=== PATIENT | male | born 1960 | race Caucasian/White ===

== ENCOUNTER 2021-12-08 12:23 | Observation (INO) ==
[2021-12-08 13:03] LABS: Basophils % 0.3 % (0.0-0.8); Eosinophils # 0.2 10*3/uL (0.0-0.87); Eosinophils % 2.1 % (0.00-10.9); Hematocrit 43.9 VOL% (42.0-52.0); Hemoglobin 14.4 GM/DL (14.0-18.0); Immature Granulocytes % 0.3 %; Immature Granulocytes Absolute 0.02 #; Lymphocytes # 1.5 10*3/uL (1.4-4.0); Lymphocytes % 19.2 % (21.2-54.2); Mean Corpuscular HGB Conc 32.8 GM/DL (32-36); Mean Corpuscular Volume 90.5 FL (87-102); Mean Platelet Volume 10.9 FL (9.6-12.0); Neutrophils % 69.1 % (38.7-73.9); Platelet Count 282 T/CUMM (130-400); Red Blood Count 4.85 MC/CUMM (3.8-5.5); Red Cell Distribution Width 12.5 % (9.3-17.3); White Blood Count 7.6 T/CUMM (4-12)
[2021-12-08 13:12] LABS: PT Patient Result 11.4 SECS (10.5-12.0); Partial Thromboplastin Time 28.7 SECS (23.8-32.1)
[2021-12-08 13:45] LABS: Albumin 4.4 G/DL (3.4-5.0); Bilirubin,Total 0.6 MG/DL (0.20-1.00); Calcium 9.7 MG/DL (8.5-10.1); Osmolality,Calculated 274.8 MOS/KG (273-304); Potassium 4.6 MMOL/L (3.5-5.1); Total Protein 7.9 G/DL (6.4-8.2)
[2021-12-08] MEDS ORDERED: niCARdipine 25 MG/10 ML VIAL IV ONE (14:58)
[2021-12-08] MEDS ORDERED: hydrALAZINE 20 MG/1 ML VIAL IV STA (16:19)
[2021-12-08] MEDS ORDERED: LORazepam 2 MG/1 ML VIAL IV STA (16:25)
[2021-12-08 16:50] LABS: Bilirubin,Urine Negative (Negative); Blood, Urine Small mg/dL (Negative); Glucose,Urine (UA) Negative (Negative); Ketones,Urine 5 mg/dL (Negative); Nitrite,Urine Negative (Negative); Protein,Urine 100 MG/DL; RBC,Urine 4 /HPF (0-4); Urine Appearance CLEAR (Clear); Urine Color Straw (Yellow); Urine Specific Gravity 1.004 (1.001-1.035); Urine Urobilinogen < 2.0 EU/DL (<2.0)
[2021-12-08] MEDS ORDERED: niCARdipine INJ 25 MG in SODIUM CHLORIDE 0.9% 240 ML IV PRN (17:45)
[2021-12-08] MEDS ORDERED: ACETAMINOPHEN 325 MG TABLET PO PRN (17:49)
[2021-12-08] MEDS ORDERED: hydrALAZINE 20 MG/1 ML VIAL IV PRN (17:49)
[2021-12-08] MEDS ORDERED: ALUMINUM/MAGNES/SIMETH MAX STR 30 ML UDCUP PO PRN (17:49)
[2021-12-08] MEDS ORDERED: DOCUSATE SODIUM 100 MG CAPSULE PO PRN (17:49)
[2021-12-08] MEDS ORDERED: ONDANSETRON 4 MG/2 ML VIAL IV PRN (17:49)
[2021-12-08] MEDS ORDERED: GLUCAGON 1 MG VIAL IM PRN (17:49)
[2021-12-08] MEDS ORDERED: DEXTROSE 10% 25 GM/250 ML BAG IV PRN (17:56)
[2021-12-08 19:39] LABS: Barbiturates Screen,Urine Negative (Negative); Benzodiazepines Screen,Urine Negative (Negative); Cannabinoid Screen,Urine Negative (Negative); Opiate Screen,Urine Negative (Negative); Phencyclidine Screen,Urine Negative (Negative)
[2021-12-08] MEDS ORDERED: hydrALAZINE 25 MG TABLET PO SCH (21:00)
[2021-12-08] MEDS ORDERED: ENOXAPARIN 40 MG/0.4 ML SYRINGE SUBCUT SCH (21:00)
[2021-12-08] MEDS: LORazepam 1 MG TABLET PO PRN (22:07)
[2021-12-09 05:42] LABS: Basophils % 0.2 % (0.0-0.8); Eosinophils # 0.4 10*3/uL (0.0-0.87); Eosinophils % 3.8 % (0.00-10.9); Hematocrit 39.9 VOL% (42.0-52.0); Hemoglobin 13.1 GM/DL (14.0-18.0); Immature Granulocytes % 0.3 %; Immature Granulocytes Absolute 0.03 #; Lymphocytes # 1.6 10*3/uL (1.4-4.0); Lymphocytes % 17.8 % (21.2-54.2); Mean Corpuscular HGB Conc 32.8 GM/DL (32-36); Mean Corpuscular Volume 89.7 FL (87-102); Mean Platelet Volume 10.7 FL (9.6-12.0); Monocytes % 11.1 % (1.7-12.7); Neutrophils % 66.8 % (38.7-73.9); Platelet Count 308 T/CUMM (130-400); Red Blood Count 4.45 MC/CUMM (3.8-5.5); Red Cell Distribution Width 12.6 % (9.3-17.3); White Blood Count 9.2 T/CUMM (4-12)
[2021-12-09 05:53] LABS: Alanine Aminotransferase 22 U/L (16-61); Albumin 3.5 G/DL (3.4-5.0); Alkaline Phosphatase 58 U/L (45-117); Aspartate Amino Transferase 18 U/L (0-37); Bilirubin,Total < 0.39 MG/DL (0.20-1.00); Blood Urea Nitrogen 19 MG/DL (7-18); Calcium 8.8 MG/DL (8.5-10.1); Carbon Dioxide 26 MMOL/L (21-32); Estimated Glom Filtration Rate 65 ML/MIN; Glucose 87 MG/DL (74-106); HDL Cholesterol 49 MG/DL (40-60); Osmolality,Calculated 279.4 MOS/KG (273-304); Potassium 3.8 MMOL/L (3.5-5.1); Risk Ratio 3.96; Sodium 140 MMOL/L (136-145); Total Protein 6.9 G/DL (6.4-8.2); Triglycerides 78 MG/DL (2-150); VLDL Cholesterol 15.6 MG/DL
[2021-12-09] MEDS: LORazepam 1 MG TABLET PO PRN (07:39)
[2021-12-09] MEDS ORDERED: NEBIVOLOL 5 MG TABLET PO SCH (09:00)
[2021-12-09] MEDS ORDERED: NEBIVOLOL 10 MG TABLET PO SCH (09:00)
[2021-12-09] MEDS ORDERED: ISOSORBIDE MONONITRATE 30 MG TABLET PO SCH (09:00)
[2021-12-09] MEDS ORDERED: PANTOPRAZOLE 40 MG TABLET PO SCH (09:00)
[2021-12-09 14:21] VITALS: BP 150/81
== END 2021-12-09 14:21 | disposition home or self-care (01) ==
LOC: N.EDINP 12:23 → N.ED 12:23 → N.EDINP 12-09 15:00
PROVIDERS: ADMIT Internal Medicine; ATTEND Internal Medicine